=== PATIENT | male | born 1960 | race Caucasian/White ===

== ENCOUNTER 2017-01-17 09:50 | Outpatient (CLI) | payer OTHER ==
--- NOTE | 2017-01-17 11:35 | RAD ---
RIGHT CLAVICLE TWO VIEWS: History: Patient fell off a trailer, ongoing swelling near the sternoclavicular joint. 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 I do not see any definite abnormality of the sternoclav icular joint and no signs of fracture. IMPRESSION: No evidence of fracture. POS: [facility]
== END 2017-01-17 09:51 | disposition home or self-care (01) ==
LOC: SCSRAD 09:50
PROVIDERS: ATTEND Family Medicine
DX: M89.8X1 Other specified disorders of bone, shoulder (principal)